=== PATIENT | female | born 1965 | race Caucasian/White ===

== ENCOUNTER 2021-06-21 07:58 | Outpatient (CLI) | payer OTHER, SELFPAY ==
--- NOTE | 2021-06-21 08:06 | MM_ITS ---
WS: [id number] BILATERAL SCREENING DIGITAL MAMMOGRAM WITH CAD HISTORY: SCREENING COMPARISON: 12/26/2018 and 02/27/2016 Bilateral CC and MLO views submitted. Computer aided detection analyzed. Breast composition: There are scattered areas of fibroglandular density. No suspicious masses, microc alcifications or architectural distortion. Scattered calcifications and asymmetries are stable. MM/[place] [id number] IMPRESSION: BI-RADS: 2-Benign FOLLOW UP: 1 Year Follow-up
== END 2021-06-21 07:59 | disposition home or self-care (01) ==
PROVIDERS: Family Provider Family Medicine; PCP Occupational Therapy Assistant; Visit Provider Family Medicine
DX: Z12.31 Encounter for screening mammogram for malignant neoplasm of breast (principal)
CPT/HCPCS: 77067

== ENCOUNTER 2021-08-24 14:06 | Outpatient (CLI) | payer OTHER, SELFPAY ==
--- NOTE | 2021-08-24 14:17 | XR_ITS ---
WS: [id number] Chest 2 views, 08/24/2021 Clinical Data: CHRONIC COUGH Comparison: Portable chest, 01/07/2011. Findings: No nodules, masses or effusions are seen. The heart is normal. The pulmonary vascularity is not increased. No pneumonia or pneumothorax is seen. There are right upper quadrant clips from a cho lecystectomy. XR/XR chest 2V* [id number] Impression: Negative chest.
== END 2021-08-24 14:07 | disposition home or self-care (01) ==
PROVIDERS: PCP Family Medicine; Visit Provider Otolaryngology
DX: R05.3 Chronic cough (principal)
CPT/HCPCS: 71046

== ENCOUNTER 2021-09-12 07:04 | Outpatient (CLI) | payer OTHER, SELFPAY ==
--- NOTE | 2021-09-12 14:01 | PFTS_ITS ---
Date of Study:09/12/21 Date of Dictation:09/15/2021 MECHANICS: Prebronchodilator forced vital capacity (FVC) is normal. Prebronchodilator forced expiratory volume in one second (FEV1) is normal. FEV1/FVC is normal. There is no postbronchodilator study. FLOW VOLUME LOOP: Normal LUNG VOLUMES: Not measured DIFFUSING CAPACITY FOR CARBON MONOXIDE: Not measured . INTERPRETATION: The prebronchodilator spirometry is normal MTDD
== END 2021-09-12 07:05 | disposition home or self-care (01) ==
LOC: RT 07:06
PROVIDERS: PCP Family Medicine; Visit Provider Otolaryngology
DX: J30.1 Allergic rhinitis due to pollen (principal)
CPT/HCPCS: 94010

== ENCOUNTER 2023-12-23 10:26 | Outpatient (CLI) | payer OTHER, SELFPAY ==
--- NOTE | 2023-12-23 10:29 | MR_ITS ---
WS: [id number] MRI RIGHT KNEE HISTORY: R KNEE PAIN COMPARISON: Radiograph 12/09/2023 Anterior cruciate ligament: Mild intrasubstance degeneration. No full-thickness tear. Posterior cruciate ligament: Intact. Medial collateral ligament: Intact. Posterior lateral corner structures: Intact. There is very minimal increased T2 signal and a small am ount of fluid adjacent to the popliteus tendon. No tear. Medial menisci: Small caliber but no tear is identified within the menisci. Fraying along the articul ar surfaces. Lateral meniscus: Complex tear posterior horn. Increased T2 signal extends to the inferior and superi or articulating surfaces and also involving the free edge in the periphery. Mild intrasubstance degen eration anterior horn. Extensor mechanism: Distal quadriceps tendon and patellar tendons are intact. Fluid and soft tissue: Small suprapatellar joint effusion. Mild edema surrounding the knee. Moderate size Lance's cyst. Lance's cyst may be partially ruptured. There is a small amount of fluid adjacent to the medial head of the gastrocnemius muscle. Osseous and articular structures: Patellofemoral compartment: Moderate narrowing patellofemoral joint space with osteophytes. Mild to m oderate diffuse chondromalacia. Medial compartment: Moderate near the medial compartment. Marked cortical irregularity with loss of c artilage is near diffuse. Marginal osteophytes. Smaller osteophytes extend from the femoral condyles towards the intercondylar notch. Lateral compartment: Complete loss of cartilage. There is fluid filling the knee joint and the menisc al tears. Complete loss of cartilage. Moderate narrowing of the joint space. Small amount of marrow e jean carlos along the weightbearing surface of the lateral tibial plateau. MR/MR knee RT wo con* [id number] IMPRESSION: 1. Moderate tricompartment osteoarthritis. Most significant involving the lat eral compartment. 2. Posterior horn lateral meniscus with diffuse abnormal signal consistent wit h complex tears. 3. Intrasubstance degeneration anterior horn lateral meniscus. 4. Small suprapatellar joint effusion. 5. Moderate size Lance's cyst. 6. Moderate narrowing the lateral compartment with complete loss of cartilage and marginal osteophytes. 7. Moderate narrowing of the patellofemoral compartment and medial compartment s.
== END 2023-12-23 10:27 | disposition home or self-care (01) ==
LOC: RAD 10:27
PROVIDERS: PCP Family Medicine; Visit Provider Physician Assistant
DX: M23.251 Derangement of posterior horn of lateral meniscus due to old tear or injury, right knee (principal); M23.341 Other meniscus derangements, anterior horn of lateral meniscus, right knee; M17.11 Unilateral primary osteoarthritis, right knee; M22.2X1 Patellofemoral disorders, right knee; M71.21 Synovial cyst of popliteal space [Baker], right knee; M25.761 Osteophyte, right knee
CPT/HCPCS: 73721

== ENCOUNTER → 2024-01-08 10:05 | Outpatient (BNVA) | payer OTHER, SELFPAY | PROVIDERS: PCP Family Medicine; Visit Provider Nurse Practitioner | DX: M17.11 Unilateral primary osteoarthritis, right knee (principal) | CPT/HCPCS: 73560; 73565 ==

== ENCOUNTER 2024-01-08 12:51 | Outpatient (CLI) | payer OTHER, SELFPAY | END 2024-01-08 12:52 | disposition home or self-care (01) | LOC: RAD 01-15 15:50 | PROVIDERS: PCP Family Medicine; Visit Provider Nurse Practitioner | DX: Z01.818 Encounter for other preprocedural examination (principal) | CPT/HCPCS: 36415; 80053; 81003; 81015; 83036; 85025 ==

== ENCOUNTER 2024-01-29 10:47 | Outpatient (CLI) | payer OTHER, SELFPAY ==
--- NOTE | 2024-01-29 10:34 | CT_ITS ---
WS: [id number] CT RIGHT knee, noncontrast HISTORY: DJD KNEE TECHNIQUE: Protocol for [facility] total knee replacement has been obtained. This includes axial imaging th rough the RIGHT hip, RIGHT knee and RIGHT ankle. DLP: 868.46 mGy.cm COMPARISON: Radiograph 01/08/2024 Valgus deformity RIGHT knee. Pelvis: No destructive bone lesions. No fluid collections. Mild diverticular disease. RIGHT knee: Mild to moderate tricompartment osteoarthritis. Greater osteophyte development in the lat eral compartment. Very slight lateral subluxation of the patella. No fractures. Small suprapatellar j oint effusion. Moderate-sized Lance's cyst. RIGHT ankle: Negative. CT/CT knee RT [facility] [id number] IMPRESSION: CT imaging provided for [facility] robotic total knee replacement.
== END 2024-01-29 10:48 | disposition home or self-care (01) ==
LOC: RAD 10:48
PROVIDERS: PCP Family Medicine; Visit Provider Specialist
DX: Z01.818 Encounter for other preprocedural examination (principal); M17.11 Unilateral primary osteoarthritis, right knee; M71.21 Synovial cyst of popliteal space [Baker], right knee
CPT/HCPCS: 73700

== ENCOUNTER → 2024-02-04 09:00 | Outpatient (BNVA) | payer OTHER, SELFPAY | PROVIDERS: PCP Family Medicine; Visit Provider Family Medicine | DX: Z01.818 Encounter for other preprocedural examination (principal); I49.9 Cardiac arrhythmia, unspecified | CPT/HCPCS: 93005 ==

== ENCOUNTER 2024-02-06 13:30 | Observation (INO) | payer OTHER, SELFPAY ==
[2024-02-06] VITALS (14 sets, daily range): BP systolic 88–155; BP diastolic 46–107; PULSE 67–92; RESP 14–18; TEMP 36.2–36.7; O2SAT 91–100; BMI 31.4
[2024-02-06 08:09] LABS: Glucose Point of Care 116 mg/dL (70-110)
--- NOTE | 2024-02-06 08:10 | P.HPUD_ITS ---
Surgery/Procedure H&P Update DATE OF PROCEDURE: February 06, 2024 DATE H&P PERFORMED: 01/08/24 H&P UPDATE INFORMATION: I have reviewed H&P completed within last 30 days, I have examined patient prior to procedure, No changes to prior documentation and H&P is in [facility] EMR on date indicated PLANNED PROCEDURE: Operation Date: 02/06/24 09:25 Proposed Procedures p Alok Robot Total Knee Arthroplasty(Right) - Zahra Franco MD Related Problem List Diagnoses (1) Primary osteoarthritis of right knee: (2) Valgus deformity, not elsewhere classified, right knee:
[2024-02-06] MEDS: sodium chloride 0.9% 1,000 ML 30 ML IV (08:14)
[2024-02-06] MEDS: gabapentin 300 mg Capsule PO (08:16)
[2024-02-06] MEDS: CELEcoxib 200 mg Capsule 400 MG PO (08:16)
[2024-02-06] MEDS: scopolamine 1.5 Patch 1 PATCH TRANSDERMA (08:28)
--- NOTE | 2024-02-06 09:05 | SUR.PREOP ---
09:00 right poplateal nerve block performed by doctor Chau, using 27ml of 0.5% ropivacaine. pt tolerated well. pt on monitor tech.
--- NOTE | 2024-02-06 09:07 | ANES.PREANE2 ---
Pre-Anesthetic Assessment Height/Weight: Height 1.63 m Weight 83.007 kg Temp Pulse Resp BP Pulse Ox O2 Del Method 98.0 F 71 14 149/107 100 Room Air 02/06/24 08:09 02/06/24 08:59 02/06/24 08:59 02/06/24 08:59 02/06/24 08:59 02/06/24 08:20 Operation Date: 02/06/24 09:25 Proposed Procedures p Alok Robot Total Knee Arthroplasty(Right) - Zahra Franco MD Familial anesthetic complications: None Was Beta Chris taken within 24 hours: Yes Was Clonidine taken within 24 hours: N/A Last intake: Intake Last Liquid Date 02/05/24 Last Liquid Time 19:00 Last Solid Date 02/05/24 Last Solid Time 19:00 Social No alcohol and No tobacco Exam alert, oriented x 3, clear to auscultation bilaterally and regular rate & rhythm CV/HEM Hypertension GI Gastroesophageal Reflux Disease Metabolic Diabetes Mellitus Anesthetic Plan ASA status: 3 Anesthesia: Regional (specify below) Risk of > 500 ml blood loss (7ml/kg in children): Yes, adequate IV access and fluids planned Medications/Allergies Home Medications Medication Instructions Recorded Confirmed Last Taken Type cetirizine 10 mg tablet (Zyrtec) 10 mg PO DAILY PRN Allergy Symptoms 01/08/24 02/05/24 02/05/24 History loperamide 2 mg capsule (Imodium 2 mg PO Q6H PRN Diarrhea 01/08/24 02/05/24 02/05/24 History A-D) meloxicam 15 mg tablet 15 mg PO DAILY #30 tabs 01/08/24 02/05/24 02/04/24 Rx metformin 500 mg tablet,extended 500 mg PO DAILY 01/08/24 02/05/24 02/04/24 20:00 History release 24 hr omeprazole 40 mg capsule,delayed 40 mg PO DAILY 01/08/24 02/05/24 02/06/24 History release atenolol 50 mg-chlorthalidone 25 1 tab PO DAILY 02/04/24 02/05/24 02/05/24 History mg tablet azelastine 137 mcg (0.1 %) nasal 1 spray intranasal DAILY 02/04/24 02/05/24 02/05/24 History spray fluticasone propionate 50 2 spray intranasal DAILY 02/04/24 02/05/24 02/05/24 History mcg/actuation nasal spray,suspension Allergies Allergy/AdvReac Type Severity Reaction Status Date / Time No Known Allergies Allergy Unverified 02/04/24 09:17 Current Medications Generic Name Dose Route Start Last Admin Trade Name Freq PRN Reason Stop Dose Admin Sodium Chloride 1,000 mls @ 30 mls/hr 02/06/24 08:00 02/06/24 08:14 Sodium Chloride 0.9% IV 02/07/24 07:59 30 mls/hr .Q24H DOMINIQUE Administration PFSH Anesthesia Medical History Primary osteoarthritis of right knee Valgus deformity, not elsewhere classified, right knee Social History Smoking and tobacco/nicotine status: never used tobacco/nicotine Data Anesthesia Cardiac Studies: No Data to Display
--- NOTE | 2024-02-06 09:08 | ANES.PROC ---
Anesthesia Procedures Procedure/Date: 02/06/24 Nerve Block ^: Nerve Block 1: Main Anesthesia: spinal anesthesia block Time Out Performed: Yes Consent: requested by attending/covering physician, from patient, from other, risks and benefits reviewed and patient agrees to proceed Nerve block location: adductor canal (R) Anesthesia monitors applied: pulse oximetry, EKG, BP cuff and oxygen Nerve block position: supine Anesthetic Used: ropivicaine 0.5% (27 ml) and with decadron (4 mg) Ultrasound used to: recognize landmarks and visualize and ID femerol nerve Nerve Stimulator Used?: No Interscalene/Femoral BLK: 4 stimuplex 21 g needle used for position and inplane approach, visualize local anesthetic spread and no vascular puncture identified Injection: neg aspiration of heme Patient Tolerated Procedure: well Complications: none
[2024-02-06] MEDS: ceFAZolin 2,000 mg SDV 2000 MG IVP ×2 (09:16→17:31)
[2024-02-06] MEDS: tranexamic acid 1,000 mg/10mL SDV 1000 MG IV (09:50)
[2024-02-06] MEDS: BUPivacaine 0.5% INJ 10 mL 20 ML XX (10:09)
[2024-02-06] MEDS: BUPivacaine liposome 13.3 mg/mL SDV 20 mL 266 MG XX (10:09)
[2024-02-06] MEDS: ceFAZolin 2,000 mg SDV 2000 MG IRRIGATION (10:11)
[2024-02-06] MEDS: vancomycin 1,000 MG SDV 1000 MG XX (10:13)
--- NOTE | 2024-02-06 12:01 | XR_ITS ---
WS: [id number] Right knee, AP and lateral views, 02/06/2024 Clinical Data: Status post total knee arthroplasty Comparison: AP both knees, right knee, 01/08/2024 Findings: There are arthroplasty components in the right knee. The components are in the usual position. There is air and edema following the recent surgery of the knee. XR/XR knee RT 1-2V [id number] Impression: Right knee arthroplasty.
--- NOTE | 2024-02-06 12:27 | PM.OP ---
Operative Report Date of procedure: February 06, 2024 Pre-op diagnosis: Primary osteoarthritis right knee with valgus deformity and flexion contracture Post-op diagnosis: Primary osteoarthritis right knee with valgus deformity and flexion contracture Post-op findings: Significant osteophyte formation and valgus deformity. Procedure done: Right total knee arthroplasty with Alok guidance Implants: The Carlos total knee system with a size 3 triathlon beaded cruciate retaining femur right, a triathlon titanium tibial component size 3 beaded, a triathlon X3 tibial bearing CS insert size 3 X 10 mm and a beaded triathlon titanium asymmetric patella size 29 x 9 mm Specimens removed/disposition: Bone, disposed of Pathology: None Surgeon: Zahra Franco MD Talent Advisor: Rozina Pierson Talent Advisor: Nurse practitioner, who services were required for exposure, retraction, and closure Anesthesia: Spinal (With MAC and supplemental adductor block, ASA 3) Estimated blood loss (mL): 520 Tourniquet time (min): 0 (Not utilized) IV fluids (mL): 1,500 Urine output (mL): 300 Complications: None Findings: Severe degenerative osteoarthritis of the right knee with valgus deformity and flexion contracture Condition: stable Disposition: PACU (Then admit to floor under observation status for postoperative pain management and rehabilitation) Brief History: This 58-year-old woman presented to the office initially with complaints of chronic right knee pain. She noted that the pain was intermittently present for years, however, she twisted her knee in November of this year and had ongoing worsening of her pain. She had near complete cartilage loss and treatment options were discussed with the patient. The patient had used prior anti-inflammatory therapies including [id number] bracing as well as NSAIDs. She had had a home exercise walking and stretching program. The patient wished to proceed with total knee arthroplasty. Risks and complications were discussed with her. Consents were signed and questions were answered in the office. The patient was also seen again preoperatively and further opportunity was given for questions and the surgical procedure was reviewed with her. Procedure: The patient was brought to the operating theater, and after undergoing spinal anesthetic, with MAC and with supplemental adductor canal block, ASA 3, the right lower extremity was prepped with Dura-Prep and draped in usual fashion following placement of a tourniquet high on the leg. The leg was then draped free.? A surgical pause was performed, and at the time of the surgical pause, we confirmed the site and side of surgery. Additionally, we confirmed the appropriate and timely administration of preoperative antibiotics, Ancef 2 g.? The availability of equipment was confirmed, and the patient's identity was verbalized as well. Following the surgical pause, an incision was made centering over the patella continuing proximally and distally as necessary to allow access to the knee joint. Dissection continued through skin and soft tissues using a scalpel. Hemostasis was obtained using electrocautery. The skin incision was followed by a median parapatellar arthrotomy. The leg was extended and the patella was able to be displaced laterally.? Appropriate arrays and markers were placed in appropriate position for use of the Alok.? Preoperative planning had been accomplished and was discussed in detail with the [facility] traveling sales representative.? Intraoperative mapping of the femur and tibia was accomplished after the arrays were placed.? Internal markers were also placed.? Once we had accomplished the Alok mapping, we began the appropriate resections for placement of the prosthesis.? The plan was for a cruciate retaining right total knee arthroplasty. Once appropriate mapping had been accomplished retraction was established using manual retraction by surgical technicians and also the Alok leg positioner and retractors.? The knee was evaluated.? There was significant osteoarthritic change as well as flexion contracture with valgus deformity.? Appropriate bone resection was accomplished using the Alok.? The femur was sized to a size 3.? Following femoral cuts, attention was directed to the tibia.? Osteophytes were removed prior to this portion of the procedure.? We had performed a medial release at the beginning of the procedure to allow for placement of the array.? Proximal tibia was evaluated, and it was felt that appropriate size for the tibia was a size 3.? Tray was noted to fit nicely with good coverage.? Rim fit was accomplished with the size 3. A trial reduction was accomplished after osteophytes have been removed as well as the medial and lateral menisci.? We had removed the anterior cruciate ligament at the beginning of the case and preserved the posterior cruciate ligament.? Trial reduction was accomplished with a size 3 femoral cruciate retaining component, a size 3 tibial tray and a size 3 CS tibial bearing insert which was 9 mm.? Secondary to the balancing of the knee, we elected to place a 10 mm insert for the actual component. Alignment was felt to be appropriate as well.? Trial components were removed after the femur had been drilled.? Prior to removal of the tibial tray which had been pinned in position with appropriate rotation as determined by the Alok plan, we broached the tibia.? Subsequently, the 4 drill holes were made for the prosthetic component.? All trial components were removed, and the wound was irrigated.? Plans were made for insertion of the prosthetic components.? Prior to this, the patella was manually prepared.? After resection of the articular surface with the jigging system, it was measured and measured a 29 mm patella.? We resected approximately 7 mm of patella.? Patellar height was restored with the patellar component. Once again, the wound was irrigated.? The Tritanium tibia was impacted into position.? The beaded femur was then impacted into position in a cementless fashion. The CS tibial insert was placed prior to placement of the femoral component. The patella was pressed into position with a patellar clamp.? Exparel was injected about the components deep and superficially.? The knee was then copiously irrigated with betadine and saline and suctioned dry. Attention was then directed to closure. Closure was accomplished with 0 Vicryl in the fascial tissues.? The suture line of 0 Vicryl was supplemented with strata fix, #1, with a running stitch from proximal to distal and a second running stitch from distal to proximal.? This was followed by Surgiflo and vancomycin powder.? Following this, a 2-0 Monocryl was used in the subcutaneous tissues, and the skin was closed with 3-0 Strata fix.? Care was taken to assure an excellent subcutaneous as well as skin closure.? A sterile dressing was then placed consisting of Dermabond Prineo, OpSite, ABD, sterile soft roll, and an Bryce wrap including over the foot. The patient was returned the Recovery Room in a satisfactory condition. X-rays were obtained and reviewed there.? The patient will be discharged to the floor for postoperative rehabilitation and pain management. Related Problem List Diagnoses (1) Primary osteoarthritis of right knee: (2) Valgus deformity, not elsewhere classified, right knee:
[2024-02-06] MEDS: chlorhexidine gluconate 0.12% Btl 473 mL 30 ML MUCOUS MEM ×3 (14:14→20:37)
[2024-02-06] MEDS: ondansetron 2 mg/ML SDV 2 mL 4 MG IVP (14:15)
[2024-02-06] MEDS: CELEcoxib 200 mg Capsule PO (14:15)
--- NOTE | 2024-02-06 14:37 | ANE.PACU2 ---
Inpatient post-anesthesia follow up: Airway intact: Yes Vital signs: Temperature 97.7 F Pulse Rate 67 Respiratory Rate 17 Blood Pressure 93/64 Pulse Oximetry 93 Oxygen Delivery Me thod Room Air Oxygen Flow Rate Fraction of Inspir ed Oxygen Hydration adequate: Yes Nausea and vomiting: No Pain level: 1 Mental status: Baseline
[2024-02-06] MEDS: calcium carbonate 500 mg Chew Tablet 1000 MG PO (17:31)
[2024-02-06] MEDS: mupirocin oint 22 gm 1 APPLIC NASAL (17:32)
[2024-02-06] MEDS: sennosides-docusate Tablet 2 TAB PO (17:32)
[2024-02-06] MEDS: iron polysaccharide complex 150 mg Capsule PO (17:32)
[2024-02-06] MEDS: tranexamic acid 1,000 MG/100 ML PREMIX 600 MG IV (17:33)
[2024-02-06] MEDS: metoclopramide 5 mg/mL SDV 2 mL 10 MG IV (17:52)
[2024-02-07] VITALS: BP 106/69; PULSE 82; RESP 18; TEMP 36.4; O2SAT 96
[2024-02-07] MEDS: ceFAZolin 2,000 mg SDV 2000 MG IVP ×2 (01:20→09:39)
[2024-02-07] MEDS: ondansetron 2 mg/ML SDV 2 mL 4 MG IVP ×2 (01:24→09:40)
[2024-02-07] MEDS: CELEcoxib 200 mg Capsule PO ×2 (01:24→13:08)
[2024-02-07 04:00] VITALS: BP 104/70; PULSE 86; RESP 17; TEMP 36.6; O2SAT 97
[2024-02-07 05:08] LABS: Basophils % 0.1 %; Eosinophils % 0.2 %; Hematocrit 30.5 % (36-47); Lymphocytes # 1.8 10^3/uL (0.8-4.8); Lymphocytes % 16.3 %; Mean Corpuscular HGB Conc 34.8 g/dL (30-55); Mean Corpuscular Hemoglobin 31.1 pg (27-33); Mean Corpuscular Volume 89.4 fl (85-98); Mean Platelet Volume 9.9 fL (7.4-10.4); Monocytes # 0.8 10^3/uL (0.2-0.9); Monocytes % 7.2 %; Neutrophils # 8.38 10^3/uL (1.8-7.7); Neutrophils % 75.7 %; Nucleated Red Blood Cells % 0 %; Platelet Count 212 10^3/cmm (157-399); Red Blood Count 3.41 10^6/uL (3.85-5.65); Red Cell Distribution Width 12.2 % (12.1-15.1); White Blood Count 11.06 10^3/uL (3.29-11.43)
[2024-02-07 05:29] LABS: Anion Gap 14.2 (5-19); Blood Urea Nitrogen 14 mg/dL (6-20); Calcium 8.3 mg/dL (8.5-10.5); Carbon Dioxide 26 mmol/L (22-29); Chloride 94 mmol/L (98-107); Creatinine Clr Calc Pharmacy 127.8275; Glomerular Filtration Rate 126.7 mL/min (90-130); Glucose 146 mg/dL (65-115); Osmolality Calculated 275 mOsm/kg (285-295); Potassium 3.2 mmol/L (3.5-5.1); Sodium 131 mmol/L (136-145)
[2024-02-07 07:21] VITALS: BP 135/87; PULSE 90; RESP 16; TEMP 36.8; O2SAT 98
[2024-02-07] MEDS: chlorhexidine gluconate 0.12% Btl 473 mL 30 ML MUCOUS MEM ×2 (09:35→13:08)
[2024-02-07] MEDS: calcium carbonate 500 mg Chew Tablet 1000 MG PO (09:36)
[2024-02-07] MEDS: fluticasone nasal spray 16gm Btl 2 SPRAY INTRANASAL (09:37)
[2024-02-07] MEDS: metformin XR 500 MG Tablet PO (09:38)
[2024-02-07] MEDS: mupirocin oint 22 gm 1 APPLIC NASAL (09:38)
[2024-02-07] MEDS: cholecalciferol (vitamin D3) 1,000 unit Tablet 1000 UNIT PO (09:39)
[2024-02-07] MEDS: chlorthalidone 25 mg Tablet PO (09:39)
[2024-02-07] MEDS: aspirin 325 mg EC Tablet PO (09:39)
[2024-02-07] MEDS: pantoprazole DR 40 mg Tablet PO (09:39)
[2024-02-07] MEDS: iron polysaccharide complex 150 mg Capsule PO (09:39)
[2024-02-07] MEDS: multivitamin therapeutic Tablet 1 TAB PO (09:39)
--- NOTE | 2024-02-07 10:00 | PC.CHAP ---
Pastoral Care Encounter/Spiritual Assessment Type of Contact [] Declined employee relations representative visit [] Patient/Family/Request visit [] Outpatient visit [] Follow-up visit [] Physician referral [] Code/Alert [x] Routine visit [] Staff referral [] Actively dying [x] Patient sleeping [] Family support [] [] Out of room [] Palliative care [] [] Receiving care in room [] Pre-surgical visit [] Trauma [] Long length of stay [] ICU visit [] Other: Relational/Emotional Strength [] Patient feels connected with others/family/visitors/staff [] Distress [] Loneliness/isolation [] Abandonment Spirituality of Patient [] Person of [place] [] Attends Scientology of their [place] [] Believes in Prayer [] Reads Bible or Uatsdin materials [] There are Spiritual issues to be addressed Marketing Operations Associate Interventions [] Prayer [] Active listening [] Non-anxious presence [] Spiritual/emotional support [] Crisis/trauma care [] Spiritual counseling [] Bereavement support [] Provided bereavement packet [] Provided Bible/devotional materials [] Provided toy/stuffed animal, coloring book to patient or family member [] Provided Communion [] Anointing/[place] [] Salvation [] Completed spiritual assessment [] Other: Impact on Illness or Injury [] Angry [] Fearful [] Anxious [] Often cries [] Exhaustion [] Unable to work [] Unable to attend spiritism [] Unable to walk/stand [] Unable to read [] Unable to drive [] Unable to eat/drink [] Unable to sleep [] Unable to be with family [] Patient intubated [] Other: Summary Time spent with patient
[2024-02-07 11:16] VITALS: BP 138/89; PULSE 95; RESP 16; TEMP 36.7; O2SAT 100
--- NOTE | 2024-02-07 13:31 | P.DS_ITS ---
Discharge Providers Date of Admission: 02/06/24 13:30 Date of Discharge: February 07, 2024 Attending Provider at Admission: Zahra Franco MD Attending Provider at Discharge: Zahra Franco MD Primary Care Provider: Devorah Duran MD Diagnoses at Discharge Discharge Diagnosis (1) Status post total right knee replacement not using cement: Status: Acute Permanent problem details: Date of procedure: February 06, 2024 Pre-op diagnosis: Primary osteoarthritis right knee with valgus deformity and flexion contracture. Procedure done: Right total knee arthroplasty with Alok guidance. Implants: [employer] total knee system with a size 3 triathlon beaded cruciate retaining femur right, a triathlon titanium tibial component size 3 beaded, a triathlon X3 tibial bearing CS insert size 3 X 10 mm and a beaded triathlon titanium asymmetric patella size 29 x 9 mm. Surgeon: Zahra Franco MD. (2) Primary osteoarthritis of right knee: Status: Chronic (3) Valgus deformity, not elsewhere classified, right knee: Status: Chronic Reason for Visit Reason for Visit: M21.061, M17.11 Brief History: This 58-year-old woman presented to the office initially with complaints of chronic right knee pain. She noted that the pain was intermittently present for years, however, she twisted her knee in November of this year and had ongoing worsening of her pain. She had near complete cartilage loss and treatment options were discussed with the patient. The patient had used prior anti- inflammatory therapies including [id number] bracing as well as NSAIDs. She had had a home exercise walking and stretching program. The patient wished to proceed with total knee arthroplasty. Underwent right total knee arthroplasty on February 06, 2024. Hospital Course Hospital Course 8-year-old woman presented for right total knee arthroplasty. Risks and complications were discussed with her preoperatively in the clinic and again day of surgery. She underwent uneventful, successful same-day total knee arthroplasty, with Alok guidance. She was admitted to the floor under observation status following the procedure. She has done well. She has been able to work with physical therapy and is ambulating with the assistance of a walker. Postoperative dressings were removed. The incision are benign, with no active drainage. The OpSite dressing was left in place. There is minimal bruising noted to the distal portion of the right knee. Patient is able to straight leg raise and there is no evidence of DVT. She is neurologically intact. No noted acute post operative complications noted at assessment. Physical Exam Const: COMMON NORMALS: no acute distress, average body habitus, patient oriented x3, no limitations, alert and well nourished GENERAL APPEARANCE: cooperative; not anxious and not combative ORIENTATION/CONSCIOUSNESS: Yes awake, Yes oriented to person, Yes oriented to place and Yes oriented to time HENMT: COMMON NORMALS: normocephalic and atraumatic HEAD & SCALP: normocephalic and atraumatic Resp: COMMON NORMALS: normal respiratory effort and No use of accessory muscles Cardio: OTHER: Denies shortness of breath, chest discomfort or cough postoperatively. Extremity: RIGHT LOWER EXTREMITY: Yes knee joint Right knee: Yes inspection (Postoperative dressing clean and dry. Minimal drainage noted), Yes palpation (TTP distal quad, anterior knee and over incision), Yes ROM (Full extension while at rest. Able to straight leg raise.) and Yes neurovascular exam (Sensation intact to light touch. 2+ DP and PT pulses.) and Yes lower leg (Calf soft, nontender. No erythema or warmth.) Right lower leg: Yes special tests Right lower leg special tests: Inocencio's sign: Negative Neuro: COMMON NORMALS: patient oriented x3 SENSORIUM/ORIENTATION: Yes alert, Yes oriented to person, Yes oriented to place and Yes oriented to time Psych: ATTITUDE: Yes engaged Skin: COMMON NORMALS: no rashes or lesions noted, turgor normal and no jaundice GENERAL SKIN EXAM: no rashes or lesions noted and turgor normal Urinary Catheter Management: Salas: Cath Placed During This Visit: yes, but has since been removed by the nurse Reason for Continuing Indwelling Catheter: Required Immobilization for Trauma or Surgery or Anesthesia Urinary Catheter Date of Insertion: 02/06/24 Urinary Catheter Time of Insertion: : Date Urinary Catheter Removed: 02/07/24 Time Urinary Catheter Discontinued: 06:44 Discharge Data Studies Completed and Pending Completed Studies During Hospitalization Category Date Time Status XR knee RT 1-2V [id number] Routine Exams 02/06/24 12:01 Completed Pending at discharge Category Date Time Status Complete Blood Count w/Auto AM LABS Lab 02/08/24 04:00 Ordered Complete Blood Count w/Auto AM LABS Lab 02/09/24 04:00 Ordered Radiology Impressions Knee X-Ray 02/06/24 12:01 Impression: Right knee arthroplasty. Laboratory Results WBC 11.06 10^3/uL (3.29-11.43) 02/07/24 04:44 RBC 3.41 10^6/uL (3.85-5.65) L 02/07/24 04:44 Hgb 10.60 g/dL (11.27-16.99) L 02/07/24 04:44 Hct 30.5 % (36-47) L 02/07/24 04:44 MCV 89.4 fl (85-98) 02/07/24 04:44 MCH 31.1 pg (27-33) 02/07/24 04:44 MCHC 34.8 g/dL (30-55) 02/07/24 04:44 RDW 12.2 % (12.1-15.1) 02/07/24 04:44 Plt Count 212 10^3/cmm (157-399) 02/07/24 04:44 MPV 9.9 fL (7.4-10.4) 02/07/24 04:44 Neut % (Auto) 75.7 % 02/07/24 04:44 Lymph % (Auto) 16.3 % 02/07/24 04:44 Rush % (Auto) 7.2 % 02/07/24 04:44 Eos % (Auto) 0.2 % 02/07/24 04:44 Baso % (Auto) 0.1 % 02/07/24 04:44 Neut # (Auto) 8.38 10^3/uL (1.8-7.7) H 02/07/24 04:44 Lymph # (Auto) 1.8 10^3/uL (0.8-4.8) 02/07/24 04:44 Rush # (Auto) 0.8 10^3/uL (0.2-0.9) 02/07/24 04:44 Eos # (Auto) 0.0 10^3/uL (0.0-0.8) 02/07/24 04:44 Baso # (Auto) 0.0 10^3/uL (0.0-0.1) 02/07/24 04:44 Nucleated RBC % (auto) 0 % 02/07/24 04:44 Nucleated RBCs # 0.0 /100WBC 02/07/24 04:44 Sodium 131 mmol/L (136-145) L 02/07/24 04:44 Potassium 3.2 mmol/L (3.5-5.1) L 02/07/24 04:44 Chloride 94 mmol/L (98-107) L 02/07/24 04:44 Carbon Dioxide 26 mmol/L (22-29) 02/07/24 04:44 Anion Gap 14.2 (5-19) 02/07/24 04:44 BUN 14 mg/dL (6-20) 02/07/24 04:44 Creatinine 0.5 mg/dL (0.5-0.9) 02/07/24 04:44 GFR Calculation 126.7 mL/min (90-130) 02/07/24 04:44 Glucose 146 mg/dL (65-115) H 02/07/24 04:44 POC Glucose 116 mg/dL (70-110) H 02/06/24 08:04 Calculated Osmolality 275 mOsm/kg (285-295) L 02/07/24 04:44 Calcium 8.3 mg/dL (8.5-10.5) L 02/07/24 04:44 Vitals Last Vital Signs Temp 98.0 F 02/07/24 11:16 Pulse 95 02/07/24 11:16 Resp 16 02/07/24 11:16 BP 138/89 02/07/24 11:16 Pulse Ox 100 02/07/24 11:16 O2 Del Method Room Air 02/07/24 11:16 Discharge Plan Discharge Patient Disposition: Home Health Service Condition: Stable Prescriptions: New aspirin 325 mg Tablet,Delayed Release (Dr/Ec) 325 mg PO DAILY Qty: 60 0RF acetaminophen 500 mg Tablet 1,000 mg PO Q8H Qty: 90 0RF tramadol 50 mg tablet 50 mg PO Q6H PRN (Reason: pain) Qty: 28 0RF Celebrex 200 mg capsule 200 mg PO DAILY Qty: 90 0RF ondansetron 4 mg tablet,disintegrating 4 mg PO TID PRN (Reason: nausea and vomiting) Qty: 21 0RF Continued metformin 500 mg tablet extended release 24 hr 500 mg PO DAILY omeprazole 40 mg capsule,delayed release(DR/EC) 40 mg PO DAILY cetirizine [Zyrtec] 10 mg tablet 10 mg PO DAILY PRN (Reason: Allergy Symptoms) loperamide [Imodium A-D] 2 mg capsule 2 mg PO Q6H PRN (Reason: Diarrhea) fluticasone propionate 50 mcg/actuation spray,suspension 2 spray intranasal DAILY Rx Instructions: administer into each nostril atenolol-chlorthalidone 50-25 mg tablet 1 tab PO DAILY azelastine 137 mcg (0.1 %) spray,non-aerosol 1 spray intranasal DAILY Discontinued meloxicam 15 mg tablet 15 mg PO DAILY Qty: 30 0RF Discharge Orders: Discharge Order (Routine); Ordered 02/07/24 Ordered By: Rozina Pierson Other Ambulatory Orders: DME: Walker (Order) Location: None Selected Ordered By: Zahra Franco Physical Therapy Eval and Treat Outpatient (Order) Timeframe: 2 Days Facility: [facility] - Location: Physical Therapy [facility] Ordered By: Zahra Franco Referrals: Zahra Franco MD [Physician] - 02/19/24 10:45 am Discharge Diet: Advance as tolerated and Usual diet Discharge Activity: Limit activity as instructed, Use walker/crutches as instructed and As per PT/OT instructions Patient Instructions: Acute Wound Care (DC), Opioid Safety, Post Anesthesia Care Activity Restrictions/Additional Instructions: Ice and elevation to lower extremity. Weightbearing as tolerated. You may remove your large outer dressing, but it will likely be removed in the hospital. Maintain the clear plastic dressing until it comes off on its own or begins to leak. Physical therapy, gait training, and ambulation per physical therapy. Discharge Attestations Time Spent in Discharge Care*: greater than 30 min Quality Metrics Clinical Quality Measures [ No reported AMI, CVA or VTE this stay] Coding Level of Care Code Acute Code for Chg Fwd Diagnoses Status post total right knee replacement not using cement Z96.651 Primary osteoarthritis of right knee M17.11 Valgus deformity, not elsewhere classified, right knee M21.061
--- NOTE | 2024-02-07 13:40 | PC.OT ---
Pt seen for OT evaluation and due to high level of function no eval is needed at this time.
== END 2024-02-07 15:43 | disposition home health service (06) ==
LOC: MEDSURG 13:34
PROVIDERS: Nurse Practitioner; Admitting Provider Specialist; PCP Family Medicine; Visit Provider Specialist
PROC: 8E0Y0CZ Robotic Assisted Procedure of Lower Extremity, Open Approach (ICD-10-PCS; CPT 27447; principal; 2024-02-06 09:15)
DX: M17.11 Unilateral primary osteoarthritis, right knee (principal); M21.061 Valgus deformity, not elsewhere classified, right knee; I10 Essential (primary) hypertension; E11.9 Type 2 diabetes mellitus without complications; K21.9 Gastro-esophageal reflux disease without esophagitis; Z79.899 Other long term (current) drug therapy
CPT/HCPCS: 27447; 36415; 36416; 51702; 73560; 80048; 82962; 85025; 97110; 97116; 97161; C1776; C9290; G0378; J0690; J1100; J2250; J2371; J2405; J2704; J2765; J2795; J3010; J3370; J3490; J7030

== ENCOUNTER → 2024-02-19 11:45 | Outpatient (BNVA) | payer OTHER, SELFPAY | PROVIDERS: PCP Family Medicine; Visit Provider Nurse Practitioner | DX: Z96.651 Presence of right artificial knee joint (principal) | CPT/HCPCS: 73560; 73565 ==

== ENCOUNTER 2024-02-26 10:31 | Outpatient (RCR) | payer OTHER, SELFPAY | END 2024-03-12 23:59 | disposition home or self-care (01) | LOC: SPT 10:31 | PROVIDERS: PCP Family Medicine; Visit Provider Nurse Practitioner | DX: Z47.1 Aftercare following joint replacement surgery (principal); Z96.651 Presence of right artificial knee joint | CPT/HCPCS: 97110; 97161 ==

== ENCOUNTER 2024-03-13 06:00 | Outpatient (RCR) | payer OTHER, SELFPAY | END 2024-04-08 11:23 | disposition home or self-care (01) | LOC: SPT 06:00 | PROVIDERS: PCP Family Medicine; Visit Provider Nurse Practitioner | DX: Z47.1 Aftercare following joint replacement surgery (principal); Z96.651 Presence of right artificial knee joint | CPT/HCPCS: 97110 ==

== ENCOUNTER → 2024-03-18 10:26 | Outpatient (BNVA) | payer OTHER, SELFPAY | PROVIDERS: PCP Family Medicine; Visit Provider Nurse Practitioner | DX: Z96.651 Presence of right artificial knee joint (principal); M17.11 Unilateral primary osteoarthritis, right knee; R03.0 Elevated blood-pressure reading, without diagnosis of hypertension | CPT/HCPCS: 73560; 73565 ==